=== PATIENT | female | born 1970 | race Two or more races ===

== ENCOUNTER 2024-03-04 05:11 | Observation (INO) ==
--- NOTE | 2024-01-29 15:06 | PAT Medication Instructions ---
Medication Instructions Date of Service January 29, 2024 Home Medications Medication Instructions Recorded ondansetron 4 mg disintegrating 4 mg PO Q8H PRN nausea and 11/21/22 tablet vomiting #20 tabs rosuvastatin 20 mg tablet 20 mg PO DAILY 90 days #90 tabs 01/21/23 tirzepatide 10 mg/0.5 mL See Rx Instructions .Route 11/06/23 subcutaneous pen injector .COMPLEX #4 mL (Mounjaro) pantoprazole 40 mg tablet,delayed See Rx Instructions .Route 12/08/23 release .COMPLEX #90 tabs lisinopril 20 mg tablet See Rx Instructions .Route 01/25/24 .COMPLEX #30 tabs acetaminophen 650 mg tablet,extended release (Tylenol Arthritis Pain) 1,300 mg PO DAILY PRN Pain famotidine 20 mg tablet 20 mg PO HS PRN Acid Reflux ondansetron 4 mg disintegrating tablet 4 mg PO Q8H PRN nausea and vomiting rosuvastatin 20 mg tablet 20 mg PO DAILY tirzepatide 10 mg/0.5 mL subcutaneous pen injector (Mounjaro) See Rx Instructions .Route .COMPLEX pantoprazole 40 mg tablet,delayed release See Rx Instructions .Route .COMPLEX lisinopril 20 mg tablet See Rx Instructions .Route .COMPLEX DO NOT take the morning of surgery lisinopril 20 mg tablet See Rx Instructions .Route .COMPLEX Take morning of surgery With a small sip of water, OTHERWISE NOTHING TO EAT OR DRINK AFTER MIDNIGHT: acetaminophen 650 mg tablet,extended release (Tylenol Arthritis Pain) 1,300 mg PO DAILY PRN Pain (if needed) ondansetron 4 mg disintegrating tablet 4 mg PO Q8H PRN nausea and vomiting (if needed) rosuvastatin 20 mg tablet 20 mg PO DAILY pantoprazole 40 mg tablet,delayed release See Rx Instructions .Route .COMPLEX Take evening before surgery acetaminophen 650 mg tablet,extended release (Tylenol Arthritis Pain) 1,300 mg PO DAILY PRN Pain (if needed) famotidine 20 mg tablet 20 mg PO HS PRN Acid Reflux (if needed) ondansetron 4 mg disintegrating tablet 4 mg PO Q8H PRN nausea and vomiting (if needed) STOP 7 days prior to surgery tirzepatide 10 mg/0.5 mL subcutaneous pen injector (Mounjaro) See Rx Instructions .Route .COMPLEX Other Notes If you have any questions please call us at [phone] or [phone] or [phone] or [phone]
--- NOTE | 2024-02-09 09:34 | Anesthesiology Consultation ---
Date of Service February 09, 2024 Assessment & Plan (1) Encounter for pre-operative examination: - Check BSG AM DOS - Infectious disease screening: Per assessment on 02/09/24: No known recent infectious disease contacts or current infectious disease symptoms. - Outpatient joint assessment: Pt currently scheduled for inpatient pathway. If surgeon requests review for outpatient joint pathway, patient is an acceptable candidate for outpatient joint program from anesthesia standpoint pending surgeon's office assessment that patient is motivated, has good support and completes Same Day Joint Program preop requirements. - Mounjaro/Tirzepatide instructions: Patient informed by PAT to stop 7 days prior to surgery- voiced understanding. DOS 03/04/24. Advised last dose to be 02/21/24. Chart Review Chart Review: Acceptable Risk for Surgery and Patient seen in Pre Admission Testing Teaching & Discussion Pre-Anesthesia Teaching/Discussion Notes: Instructed NPO after midnight before surgery,except medications with 15 cc of water. Medication instructions provided according to the PAT guidelines. History Surgery Operation Date: 03/04/24 07:00 Proposed Procedures p Right Total Knee Arthroplasty - Geronimo Nguyen DO Height/Weight Height: 5 ft 6.5 in Weight: 103.6 kg Allergies Allergy/AdvReac Type Severity Reaction Status Date / Time No Known Drug Allergies Allergy Verified 01/27/24 09:06 Medications Home Medications Medication Instructions Recorded Confirmed Last Taken acetaminophen 650 mg 1,300 mg PO DAILY PRN Pain 10/02/22 01/27/24 Unknown tablet,extended release (Tylenol Arthritis Pain) famotidine 20 mg tablet 20 mg PO HS PRN Acid Reflux 10/02/22 01/27/24 01/19/23 ondansetron 4 mg disintegrating 4 mg PO Q8H PRN nausea and 11/21/22 01/27/24 Unknown tablet vomiting #20 tabs rosuvastatin 20 mg tablet 20 mg PO DAILY 90 days #90 tabs 01/21/23 01/27/24 01/21/23 tirzepatide 10 mg/0.5 mL See Rx Instructions .Route 11/06/23 01/27/24 Unknown subcutaneous pen injector .COMPLEX #4 mL (Mounjaro) pantoprazole 40 mg tablet,delayed See Rx Instructions .Route 12/08/23 01/27/24 Unknown release .COMPLEX #90 tabs lisinopril 20 mg tablet See Rx Instructions .Route 01/25/24 01/27/24 Unknown .COMPLEX #30 tabs Wheeled Walker #1 ea 02/09/24 02/09/24 Unknown Past Medical History Medical History Endometriosis GERD (gastroesophageal reflux disease) History of COVID-19 04/2022- sore throat, congestion; resolved HTN (hypertension) Hyperlipidemia Obesity Osteoarthritis Type 2 diabetes mellitus Exercise / Class Metabolic Activity II 4-5 Yardwork/Stairs/Walk up hill (one FS: No CP, no SOB) Past Family History Family History Father Myocardial infarction Grandfather (Paternal) Myocardial infarction Uncle Myocardial infarction Denies family history of Ovarian cancer Prostate cancer Breast cancer Lung cancer Colorectal cancer Cancer Past Surgical History Surgical History History of cholecystectomy History of colonoscopy History of esophagogastroduodenoscopy (EGD) + dilation History of laparoscopy Multiple History of tubal ligation Slow to wake up after anesthesia Past Anesthesia History No Family Hx of Anesthesia Complications and Other (Remote hx of Slow to wake) History of PONV No Hx of Motion Sickness and History of PONV (nausea) Social History Smoking Status: Never smoker Do You Dip or Chew Tobacco: No Hx Alcohol Use: No Hx Substance Use: No substance use type: does not use Review of Systems Patient denies chest pain, shortness of breath, dyspnea on exertion, fever, chills, cough, wheezing, palpitations. Physical Exam Vital Signs BP 106/71 P 77 TEMP 98.4 SP02 96%RA RESP 16 Physical Full cervical extension range of motion. Full TMJ range of motion. TMD 3 finger breaths Mallampati Score I Dentition: intact Lungs: clear throughout to auscultation Cardiac: regular rate and rhythm, no murmurs noted Spine: normal Carotid arteries: negative bruit Extremities: no LE edema Lab Results Anesthesia Preop Results Results Anesthesia Widget: WBC 7.28 K/ul (4.8-10.8) 02/09/24 Hgb 12.1 g/dl (12.0-16.0) 02/09/24 Hct 35.5 % (37.0-47.0) L 02/09/24 Plt 286 K/uL (130-400) 02/09/24 Na 139 mmol/L (136-145) 02/09/24 K 3.9 mmol/L (3.5-5.1) 02/09/24 Cl 103 mmol/L (98-107) 02/09/24 CO2 28 mmol/L (21-32) 02/09/24 BUN 9 mg/dl (6-23) 02/09/24 Creat 0.94 mg/dl (0.6-1.2) 02/09/24 Glucose Level 111 mg/dl (70-99(Fasting)) H 02/09/24 PT 10.2 Seconds (9.0-12.0) 02/09/24 PTT 24 Seconds (21-31) 02/09/24 INR 0.9 (0.9-1.1) 02/09/24 HA1c 5.5 % (4.5-5.6) 02/09/24 Blood Type O Negative 02/09/24 Antibody Screen NEGATIVE 02/09/24 Testing Electrocardiogram Date: 02/09/24 NSR at 66bpm. "Normal ECG" Chest X-Ray Date: 02/09/24 Findings: + NAD
[2024-03-04] MEDS: LR 500ML BOLUS, THEN 15ML/HR IV SCH (05:49)
[2024-03-04] MEDS: dexAMETHasone**PF** 10 MG/ML VIAL IV SCH (05:51)
[2024-03-04] MEDS: GABAPENTIN 900 MG DOSE PO SCH (05:52)
[2024-03-04] MEDS: FAMOTIDINE 20 MG TAB PO SCH (05:52)
[2024-03-04] MEDS: ACETAMINOPHEN 500 MG TAB PO SCH ×2 (05:52→13:51)
[2024-03-04] MEDS: LR 60ML/HR IV SCH (05:52)
[2024-03-04] MEDS ORDERED: BUPIVACAINE 0.5 % 5 MG/1 ML PF 10ML VIAL ONE (06:13)
[2024-03-04] MEDS ORDERED: BUPIVACAINE 0.25% PF 30 ML VIAL ONE (06:13)
--- NOTE | 2024-03-04 06:24 | History & Physical Bridge Note ---
Date of Service March 04, 2024 History & Physical Bridge Note I have examined the patient, reviewed the History & Physical and in the interval since the performance of the History & Physical I have noted the following changes of clinical significance: no changes noted
[2024-03-04] MEDS ORDERED: MIDAZOLAM HCL 1 MG/ML 2ML VIAL ONE ×2 (06:37→06:43)
[2024-03-04] MEDS ORDERED: ATROPINE SULFATE 0.1 MG/ML 10ML SYR IV PRN (06:42)
[2024-03-04] MEDS ORDERED: ONDANSETRON INJ 2 MG/ML 2 ML VIAL IV PRN ×2 (06:42→10:33)
[2024-03-04] MEDS ORDERED: ePHEDrine sulfate 50 MG/ML AMP IV PRN (06:42)
[2024-03-04] MEDS ORDERED: PROMETHAZINE HCL 6.25 MG in SODIUM CHLORIDE 0.9% 50 ML IV PRN (06:42)
[2024-03-04] MEDS ORDERED: PROPOFOL IV EMULSION 10 MG/ML 20 ML VIAL IV ONE (06:42)
[2024-03-04] MEDS: TRANEXAMIC ACID 1,000 MG **IV Pre-op IV SCH (06:46)
[2024-03-04] MEDS: ceFAZolin 2000MG 2,000 MG/15 ML SYR IV SCH ×2 (06:58→13:51)
[2024-03-04] MEDS: ORTHO JOINT ANESTHETIC ONE (07:30)
[2024-03-04] MEDS: ROPIV 0.5% 246mg, Ketorolac 30mg, EPINEPHrine 0.5mg in NSS INFIL SCH (07:30)
[2024-03-04] MEDS: TRANEXAMIC ACID 1,000 MG **IV Intra-op IV SCH (07:40)
--- NOTE | 2024-03-04 07:53 | Operative Report ---
PG Post Operative Report Pre & Post Diagnosis Operation Date: 03/04/24 07:00 Pre-Op Diagnosis: Right Knee Osteoarthritis Post-Op Diagnosis: Right Knee Osteoarthritis I identified the patient and participated in the time-out.: Yes Procedure Operation Date: 03/04/24 07:00 Actual Procedures p Right Total Knee Arthroplasty(Right) - Geronimo Nguyen DO Surgeon Geronimo Nguyen DO [employer] Geronimo Zavala PA-C Estimated Blood Loss 30 Findings Consistent with Post-Op Diagnosis Specimens Right femoral tibial bone Description of Procedure Implants used: I used a Blanca Persona total knee arthroplasty system with a size 7 standard PS femur, E tibia, 31 oval patella, and a size 16 CPS polyethylene bearing. All components were cemented in place with Biomet cement. Jes arrived [facility] for the above procedure. She was seen in the preoperative holding area and the operative extremity was identified and signed. She was given a preoperative antibiotic, TXA, a spinal anesthetic and an adductor nerve block. She was taken back to the operating room and laid on the table in supine position. She was given basic sedation. The operative knee was then prepped and draped in sterile fashion. A timeout was done, and the patient and the operative extremity was properly identified. A midline incision was made directly over the patella. Dissection was taken down to the extensor mechanism. A subvastus arthrotomy was used. The medial retinaculum was released and the fat pad was mostly excised. The knee was flexed and the ACL, PCL, and meniscus were removed. A drill was sent down the center of the femoral canal followed by an intramedullary mike. Off that mike a distal femoral cutting block was placed. 9 mm was resected off the distal femur at 5 of valgus. A posterior referencing AP sizing guide was then placed on the distal femur. The femur measured to be a size 7. 2 drill holes were placed in 3 of external rotation. A 4-in-1 cutting block was then impacted into place. Anterior, posterior, and chamfer cuts were then made. The proximal tibia was then exposed. An external tibial alignment guide was placed. A tibial cut guide was then anchored in place and the proximal tibia was then resected. The posterior aspect of the knee was then opened up and any additional meniscus fragments and osteophytes were removed. The tibia measured to be a size E. The tibial plate was then placed in the appropriate rotation and the tibia was drilled and punched. Trial components were then placed. I used a size 16 CPS polyethylene insert. The knee was brought through a full range of motion and felt to be stable. The peg holes for the femoral component were then drilled. The patella was then everted and 9 mm was resected off the posterior aspect of the patella. The patella measured to be a size 31 oval. 3 peg holes were then drilled. A trial patella was placed. The knee was once again brought through a full range of motion and felt to be stable. Trial components were then removed. The surrounding soft tissues were injected with 100 cc of an orthopedic pain control cocktail. All components were then cemented into place with Biomet cement. The final polyethylene insert was then snapped into place. Once cement was dry the tourniquet was deflated. Hemostasis was obtained. A dilute betadyne lavage was then done for 3 minutes. The joint was then irrigated with normal saline solution. The subvastus arthrotomy was then closed with #1 Vicryl suture. The skin was closed with 2-0 Vicryl, 3-0V lock suture, and randa. A soft compressive dressing was placed. She was then transferred to a hospital bed and taken to the postanesthesia care unit in stable condition. She tolerated the procedure well. Geronimo Zavala PA-C, was present for the entire procedure. He was critical for patient positioning, prepping, draping, retraction exposure, wound closure and application of sterile dressing. I attest to the content of the Intraoperative Record and any orders documented therein. Any exceptions are noted below.
--- NOTE | 2024-03-04 08:35 | XRay Report ---
XR knee RT 1 or 2V routine HISTORY: 53 years-old Female Surgical Post Op right knee arthroplasty COMPARISON: 12/08/2023 TECHNIQUE: 2 views of the right knee FINDINGS: Total joint arthroplasty with patellar resurfacing. Corticated ossifications project posterior to the knee. Anterior midline skin randa with expected postoperative soft tissue swelling and deep tissue air. IMPRESSION: Total joint arthroplasty with expected postoperative changes. ACT 112: Negative or not required by law. The above report was generated using voice recognition software. It may contain grammatical, syntax o r spelling errors. Electronically signed by: Shay Guo M.D. 03/04/2024 8:34 AM
[2024-03-04] MEDS: fentaNYL citrate PF 100 MCG/2 ML VIAL IV PRN (09:57)
[2024-03-04] MEDS ORDERED: ONDANSETRON 4 MG OD TAB PO PRN (10:33)
[2024-03-04] MEDS ORDERED: HYDROmorphone INJ 0.5 MG/0.5 ML SYR IV PRN (10:33)
[2024-03-04] MEDS ORDERED: FAMOTIDINE 20 MG TAB PO PRN (10:33)
[2024-03-04] MEDS ORDERED: MAGNESIUM HYDROXIDE SUSP 30 ML UDC PO PRN (10:33)
[2024-03-04] MEDS ORDERED: bisacodyL 10 MG SUPP PR PRN (10:33)
[2024-03-04] MEDS ORDERED: oxyCODONE HCL IR 5 MG TAB (IMMEDIATE RELEASE) PO PRN (10:33)
[2024-03-04] MEDS ORDERED: NON-FORMULARY MEDICATION (Tirzepatide [Mounjaro] 10 mg/0.5 mL pen injector) SCH (10:33)
[2024-03-04] MEDS ORDERED: METOCLOPRAMIDE HCL INJ 5 MG/ML 2 ML VIAL IV PRN (10:33)
[2024-03-04] MEDS ORDERED: NALOXONE HCL 0.4 MG/1 ML VIAL/CARP IV PRN (10:33)
[2024-03-04] MEDS: ASPIRIN 81 MG ECTAB PO SCH (12:04)
[2024-03-04] MEDS: MULTIVITAMIN TAB PO SCH (12:05)
[2024-03-04] MEDS: KETOROLAC 30 MG/ML VIAL IV SCH (12:05)
[2024-03-04] MEDS: ROSUVASTATIN CALCIUM 20 MG TAB PO SCH (12:05)
[2024-03-04] MEDS: DOCUSATE SODIUM 100 MG CAP PO SCH (12:05)
--- NOTE | 2024-03-04 14:54 | Electrocardiogram Report ---
Test Reason : Blood Pressure : */* mmHG Vent. Rate : 52 BPM Atrial Rate : 52 BPM P-R Int : 180 ms QRS Dur : 86 ms QT Int : 432 ms P-R-T Axes : -5 16 12 degrees QTcB Int : 401 ms Sinus bradycardia Otherwise normal ECG When compared with ECG of 09-Feb-2024 10:06, No significant change was found Confirmed by Flo Moncada ([id number]) on 03/04/2024 2:54:02 PM Referred By: Geronimo Nguyen Confirmed By: Flo Moncada
--- NOTE | 2024-03-04 15:12 | Anesthesiology Progress Note ---
Date of Service March 04, 2024 Anesthesia Post Procedure Vital Signs Vital Signs: Temp Pulse Pulse Resp BP Pulse Ox O2 Del Method 03/04/24 15:00 36.9 C 64 18 114/71 99 Room Air 03/04/24 13:03 36.4 C L 72 16 111/71 97 Room Air 03/04/24 12:03 36.4 C L 71 16 123/81 99 Room Air 03/04/24 11:21 36.5 C 57 L 18 114/73 99 Room Air 03/04/24 10:50 36.6 C 59 L 16 113/73 97 Room Air 03/04/24 10:20 36.8 C 61 18 108/72 96 Room Air 03/04/24 10:00 36.4 C L 57 L 13 120/66 92 Room Air 03/04/24 09:50 36.4 C L 52 L 10 L 112/61 95 Room Air 03/04/24 09:40 36.4 C L 52 L 13 117/66 95 Room Air 03/04/24 09:30 36.4 C L 52 L 19 118/69 97 Room Air 03/04/24 09:20 36.4 C L 58 L 16 108/71 99 Room Air 03/04/24 09:10 36.4 C L 53 L 14 109/65 93 Room Air 03/04/24 09:00 36.4 C L 56 L 15 115/60 96 Room Air 03/04/24 08:50 36.4 C L 55 L 15 112/64 97 Room Air 03/04/24 08:40 62 21 113/57 L 95 Room Air 03/04/24 08:30 59 L 17 109/59 L 98 Oxymask 03/04/24 08:20 70 17 110/70 97 Oxymask 03/04/24 08:11 62 21 113/57 L 95 Room Air 03/04/24 08:11 36.3 C L 70 14 103/66 98 Oxymask 03/04/24 05:36 37.0 C 65 18 135/75 98 Room Air O2 Flow Rate 03/04/24 15:00 03/04/24 13:03 03/04/24 12:03 03/04/24 11:21 03/04/24 10:50 03/04/24 10:20 03/04/24 10:00 03/04/24 09:50 03/04/24 09:40 03/04/24 09:30 03/04/24 09:20 03/04/24 09:10 03/04/24 09:00 03/04/24 08:50 03/04/24 08:40 03/04/24 08:30 1 03/04/24 08:20 3 03/04/24 08:11 03/04/24 08:11 5 03/04/24 05:36 Pain Intensity Left Medial Back: Pain Intensity: 3 Transfer of Care Handoff Completed per policy Notes Mental Status: alert / awake / arousable and participated in evaluation Patient Amnestic to Procedure: Yes Nausea / Vomiting: adequately controlled Pain: adequately controlled Airway Patency, RR, SpO2: stable & adequate BP & HR: stable & adequate Hydration State: stable & adequate Neuraxial Anesthesia: was administered and sensory block is resolving Anesthetic Complications: no major complications apparent and Pt Satisfied with anesthetic care
[2024-03-04] MEDS: SODIUM CHLORIDE 0.9% 1,000 ML IV SCH (15:24)
[2024-03-04] MEDS: SENNA 8.6 MG TAB PO SCH (20:48)
[2024-03-05 04:49] VITALS: O2SAT 97
--- NOTE | 2024-03-05 07:11 | Orthopedic Progress Note ---
Date of Service March 05, 2024 Assessment & Plan (1) Status post right knee replacement: Overall she is doing very well. She is not having much pain in the right knee. She will be seen by physical therapy today for ambulation and range of motion exercises. She is on aspirin for DVT prophylaxis. The nursing staff can change her dressing after physical therapy. She can be discharged to home later today. She will follow-up orthopedics in 2 weeks. Gabby Lakedi was seen and examined at bedside this morning. Overall she is doing well. She is not having much pain in her knee. She has been up and ambulating to the bathroom. She has no complaints.. Review of Systems All systems reviewed & are unremarkable except as noted in HPI & below. Physical Exam On physical examination of the right knee, her leg is out full extension. She has active dorsiflexion plantarflexion of her right ankle. Sensation is intact.. Results & Data Results & Data Laboratory Results . Diagnostic Findings Postoperative x-rays of the right knee show the prosthesis to be in anatomic alignment without any evidence of fracture complication, or loosening.. PG Care Time/CCT Total # of Minutes Spent Total Time Spent with Patient: Total time spent is greater than 50% in coordination of care (as documented) at patient's floor/unit and/or counseling patient: Coding Level of Care Code 68172 Post Operative Follow-Up Diagnoses Status post right knee replacement Z96.651
--- NOTE | 2024-03-05 07:13 | Discharge Summary ---
Date of Service March 05, 2024 Principal Diagnosis Same as "Discharge Diagnosis" noted below under Discharge Instructions. Discharge Exam On physical examination of the right knee, her leg is out full extension. She has active dorsiflexion plantarflexion of her right ankle. Sensation is intact.. Discharge Data Procedures Performed Operation Date: 03/04/24 07:00 Actual Procedures p Right Total Knee Arthroplasty(Right) - Geronimo Nguyen DO Ordered Studies 03/04/24 05:00 US - OR guided needle placemen Routine Hospital Course (1) Status post right knee replacement: On March 04, 2024 Jes arrived at [facility] and underwent a right knee replacement without complication. She had a spinal anesthetic. Postoperatively she was started on aspirin for DVT prophylaxis and transferred to the general orthopedic floors. Her hospital course was uneventful. On postop day #1, her vital signs were stable and her pain was well-controlled. She was able to participate well with physical therapy doing ambulation and range of motion exercises. She was then discharged to home. She will follow-up with orthopedics in 2 weeks. PG Care Time/CCT Total # of Minutes Spent Total Time Spent with Patient: Total time spent is greater than 50% in coordination of care (as documented) at patient's floor/unit and/or counseling patient: Discharge Plan Discharge Items Patient Disposition: Home - Self-Care Reason For Visit: POST OP TKA Discharge Diagnosis: Right knee replacement Activity: Per Instructions section Non-emergency contact: Surgeon Call non-emergency contact if: your wound has increased redness and your wound has increased drainage Follow-up/Referrals: Enmanuel Olson DO [Primary Care Provider] - Diet: Regular Addtl Attending Provider Instructions: Activity and Therapy Recommendations: * If you are using [facility] then therapy will be provided at your home until they feel you have accomplished all of your goals. * If you are using [facility] then Physical Therapy will be provided until they feel you are ready to start Outpatient Physical Therapy. * If you are not using home therapy then Outpatient Physical Therapy should start about 3-5 days from your day of surgery. Therapy will last about 6-10 weeks * It is important not to put a pillow under your knee when you are relaxing or sleeping. It is just as important to make sure you are getting your knee perfectly straight as it is to regain your knee bend. * You were shown a series of exercises in the hospital. Do these exercises three times each day including the exercises you were shown in physical therapy. * Get up and walk several times each day. For the first four weeks, try not to stand or walk for more than one hour at a time. If you do stand or walk for more than one hour, you will not hurt anything, but your leg will likely swell. * As you feel comfortable, you may change from the walker or crutches to a cane and then to independent walking. Medications: * Narcotic You will likely be sent home from the hospital with a prescription for the narcotic pain medication that worked best throughout your stay. * Cefadroxil -take the antibiotic twice a day for 10 days to help prevent infection. * Aspirin Most patients will be required to take Aspirin 81mg twice a day for 6 weeks after surgery. This is obtained [id number] and a prescription is not necessary. * Other medications may be prescribed for specific circumstances. If you have any questions, please call the office at . * Resume previous home medications unless otherwise instructed TEDs/Elastic Stockings: The white elastic stockings help limit swelling and prevent blood clots from forming in your legs.~ The more you wear them, the more they work. Wear them for six weeks. Dressing Care: The dressing can be changed after physical therapy on postop day #1. Daily dry dressing changes for a few days, especially if the incision is still draining some. If the incision is not draining then you may leave the randa open to air. If there is a little bit of drainage or if the randa are getting stuck on your clothing then cover the incision with a dry dressing. The randa will be removed at your 2 week follow-up appointment. Showering: You may shower 5 days from the day of surgery as long as the incision is no longer draining. You may shower with the randa exposed. Let soapy water run over the randa and pat them dry. Do not scrub or soak the incision. Diet: You may resume your previous diet. Things To Watch For: * Drainage from the incision site that occurs more than one week after your surgery. * Increased redness at the incision site. * Fever above 102 degrees Fahrenheit. * Unusual chest pain or shortness of breath. * Call [facility] at with any of the above problems Follow-Up Visit: Follow-up with Dr. Nguyen's PA (Geronimo Zavala) 2-3 weeks after your day of surgery. He will remove your randa and answer any questions. If you have any additional questions or concerns, Dr Nguyen is usually in the office at the same time and will be available An appointment was probably scheduled when you signed-up for surgery in the office. If you have any questions call Office Instructions: More detailed instructions as well as Frequently Asked Questions were provided in a folder by our office when you signed-up for surgery. Please review these instructions when you get home. If you have any further questions or concerns, please feel free to call the office at [phone] Pending Studies at Discharge: No Stand-Alone Forms: My [facility], Smoking Cessation Medications and DC Order Prescriptions: New oxycodone 5 mg Tablet 5 mg PO Q4H PRN (Reason: pain) Qty: 30 0RF cefadroxil 500 mg capsule 500 mg PO BID 10 Days Qty: 20 0RF aspirin 81 mg Tablet,Delayed Release (Dr/Ec) 81 mg PO BID 42 Days Qty: 84 0RF Continued ondansetron 4 mg tablet,disintegrating 4 mg PO Q8H PRN (Reason: nausea and vomiting) Qty: 20 0RF Mounjaro 10 mg/0.5 mL pen injector See Rx Instructions .ROUTE .COMPLEX Qty: 4 6RF Dose Instruction: INJECT 1 SYRINGE SUBCUTANEOUSLY ONCE A WEEK Patient Comments: MONDAYS Rx Instructions: INJECT 1 SYRINGE SUBCUTANEOUSLY ONCE A WEEK lisinopril 20 mg tablet See Rx Instructions .ROUTE .COMPLEX Qty: 30 2RF Dose Instruction: TAKE 1 TABLET BY MOUTH DAILY Rx Instructions: TAKE 1 TABLET BY MOUTH DAILY rosuvastatin 20 mg tablet 20 mg PO DAILY 90 Days Qty: 90 3RF pantoprazole 40 mg tablet,delayed release (DR/EC) See Rx Instructions .ROUTE .COMPLEX Qty: 90 0RF Dose Instruction: Take 1 tablet by mouth once daily Rx Instructions: Take 1 tablet by mouth once daily famotidine 20 mg tablet 20 mg PO HS PRN (Reason: Acid Reflux) acetaminophen [Tylenol Arthritis Pain] 650 mg tablet extended release 1,300 mg PO DAILY PRN (Reason: Pain) (DME) Wheeled Walker Misc See Rx Instructions .[facility] Qty: 1 0RF Rx Instructions: As directed Discharge Orders: Discharge Order (Routine); Ordered 03/05/24 Ordered By: Geronimo Nguyen Admission Data Admit Date/Time: 03/04/24 08:11 Attending Provider: Geronimo Nguyen Admit Provider: Geronimo Nguyen Primary Care Provider: Enmanuel Olson Other Providers: [facility]
[2024-03-05 09:22] VITALS: BP 111/70; PULSE 68; RESP 16; TEMP 98.4
[2024-03-05] MEDS: dexAMETHasone 4 MG TAB PO SCH (09:29)
[2024-03-05] MEDS: lisinopril 20 MG TAB PO SCH (09:30)
== END 2024-03-05 10:51 | disposition home health service (06) ==
LOC: 3E 05:11 → ASU 05:11